=== PATIENT | female | born 1955 | race Caucasian/White ===

== ENCOUNTER 2016-06-22 12:48 | Emergency (ER) | payer MEDICAID, OTHER ==
[~2016-06-22] VITALS: Ht 157.5 cm; Wt 122.5 kg
[~2016-06-22 12:48] MED LIST: DIPH-530 PO
[2016-06-22] MEDS ORDERED: predniSONE 20 MG TABLET ONE (13:08)
[2016-06-22] MEDS ORDERED: ALBUTEROL FS 2.5 MG/3 ML VIAL.NEB ONE ×3 (13:09→16:11)
[2016-06-22] MEDS ORDERED: ALBUTEROL FS 2.5 MG/3 ML VIAL.NEB CONTNEB ONE (13:30)
[2016-06-22] MEDS ORDERED: predniSONE 20 MG TABLET PO ONE (13:30)
[2016-06-22 14:22] LABS: BASOPHILS # (AUTO) 0.1 /CMM (0.0-0.2); BASOPHILS % (AUTO) 0.9 % (0.0-2.0); DIFF TOTAL % 100 %; EOSINOPHILS # (AUTO) 0.1 /CMM (0.0-0.7); EOSINOPHILS % (AUTO) 0.9 % (0.0-6.0); HEMATOCRIT 44 % (33-45); HEMOGLOBIN 14.4 g/dL (11.5-14.8); LYMPHOCYTES # (AUTO) 1.4 /CMM (0.8-4.8); LYMPHOCYTES % (AUTO) 11.4 % (20.0-44.0); MEAN CORPUSCULAR HEMOGLOBIN 30 PG (26.0-33.0); MEAN CORPUSCULAR HGB CONC 33 g/dl (31.0-36.0); MEAN CORPUSCULAR VOLUME 91 fL (82-100); MONOCYTES # (AUTO) 0.5 /CMM (0.1-1.30); MONOCYTES % (AUTO) 3.8 % (2.0-12.0); NEUTROPHILS # (AUTO) 9.8 /CMM (1.8-8.9); PLATELET COUNT (AUTO) 303 /CMM (150-450); RED BLOOD CELL COUNT(AUTO) 4.84 MIL/uL (4.0-5.2); WHITE BLOOD COUNT (AUTO) 11.9 K/uL (4.3-11.0)
[2016-06-22] MEDS ORDERED: ALBUTEROL FS 2.5 MG/3 ML VIAL.NEB NEB ONE ×3 (14:30→16:00)
[2016-06-22] MEDS ORDERED: IV NS 0.9% 250 ML IV ONE (15:09)
[2016-06-22] MEDS ORDERED: IOHEXOL-350 100 ML VIAL IV ONE (15:09)
[2016-06-22] MEDS ORDERED: CT SWABBABLE VALVE TRANS SET 1 EA INFUS.SET MC ONE (15:09)
[2016-06-22] MEDS ORDERED: IPRATROPIUM NEB FS 0.5 MG/2.5 ML AMPUL.NEB NEB ONE (16:00)
[2016-06-22] MEDS ORDERED: IPRATROPIUM NEB FS 0.5 MG/2.5 ML AMPUL.NEB ONE (16:11)
[2016-06-22 16:22] LABS: CALCIUM, SERUM 9.3 mg/dL (8.5-10.1); CREATININE 0.8 mg/dL (0.6-1.3); POTASSIUM 4.1 mmol/L (3.5-5.1)
[2016-06-22 18:42] LABS: ABG BASE EXCESS -1.6 mmol/L; ABG HCO3 21.9 mmol/L; ABG PCO2 33.6 mmHg (35.0-45.0); ABG PH 7.431 (7.350-7.450); ABG PO2 64.6 mmHg (75.0-100.0); ABG TOTAL HEMOGLOBIN 15.9 G/dL (12.0-16.0); ALLEN TEST Pass; AaDO2 44.9 mmHg; O2Hb 91.9 % (94.0-97.0)
[2016-06-22 18:49] VITALS: BP 122/78
== END 2016-06-22 18:50 | disposition home or self-care (01) ==
LOC: ER 12:50
DX: J20.9 Acute bronchitis, unspecified (principal); E66.9 Obesity, unspecified; G47.30 Sleep apnea, unspecified; K58.9 Irritable bowel syndrome, unspecified; Z88.1 Allergy status to other antibiotic agents
CPT/HCPCS: 36415; 36600; 71010; 71275; 80048; 83880; 85025; 85378; 93005; 93970; 94640; 99285; A4606; J7050; J7512; Q9967; Z7610

== ENCOUNTER 2019-03-30 15:40 | Emergency (ER) | payer OTHER ==
[~2019-03-30] VITALS: Ht 157.5 cm; Wt 122.5 kg
[2019-03-30 16:29] VITALS: BP 160/95
== END 2019-03-30 17:43 | disposition home or self-care (01) ==
LOC: ER 15:46
DX: S46.812A Strain of other muscles, fascia and tendons at shoulder and upper arm level, left arm, initial encounter (principal); S66.812A Strain of other specified muscles, fascia and tendons at wrist and hand level, left hand, initial encounter; S09.8XXA Other specified injuries of head, initial encounter; K58.9 Irritable bowel syndrome, unspecified; M79.7 Fibromyalgia; Z98.890 Other specified postprocedural states; Z88.1 Allergy status to other antibiotic agents; Z60.2 Problems related to living alone; W07.XXXA Fall from chair, initial encounter; Y93.89 Activity, other specified; Y92.89 Other specified places as the place of occurrence of the external cause; Y99.8 Other external cause status